=== PATIENT | female | born 1995 | race Caucasian/White ===

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

== ENCOUNTER 2017-09-16 14:02 | Emergency (ER) | payer OTHER ==
[~2017-09-16] VITALS: Ht 152.4 cm; Wt 79.4 kg
[2017-09-16 14:11] VITALS: BP 109/69
--- NOTE | 2017-09-16 14:33 | NUR ---
PATIENT IS A 22 YO FEMALE BIB SELF FOR GENERALIZED RASH FOR 1 DAY. AWAKE AND ALERT NO ACUTE DISTRESS TO BED 10.
[2017-09-16 15:14] VITALS: BP 109/69
--- NOTE | 2017-09-16 15:14 | NUR ---
Patient discharged with v/s stable. Written and verbal after care instructions given and explained. Patient alert, oriented and verbalized understanding of instructions. Ambulatory with steady gait. All questions addressed prior to discharge. ID band removed. Patient advised to follow up with PMD. Rx of CLARITIN given. Patient educated on indication of medication including possible reaction and side effects. Opportunity to ask questions provided and answered.
== END 2017-09-16 15:14 | disposition home or self-care (01) ==
LOC: MED 14:02
DX: T78.49XA Other allergy, initial encounter (principal); L29.9 Pruritus, unspecified; Z79.899 Other long term (current) drug therapy; X58.XXXA Exposure to other specified factors, initial encounter
CPT/HCPCS: 99282

== ENCOUNTER 2017-09-18 09:24 | Emergency (ER) | payer OTHER ==
[~2017-09-18] VITALS: Ht 154.9 cm; Wt 78.9 kg
[2017-09-18 09:33] VITALS: BP 118/75
--- NOTE | 2017-09-18 09:55 | NUR ---
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 Pt is aox4 to person, situation, time, and place. RR are even and unlabored. No swelling noted to lips, tongue, or face. Clear speech with full setences. Patient changed into gown. Awaiting er md carpio. All needs met at this. Will continue to monitor.
[2017-09-18] MEDS ORDERED: diphenhydrAMINE 50 MG/ML VIAL IM ONE (10:05)
[2017-09-18] MEDS ORDERED: DEXAMETHASONE 10 MG/ML VIAL IM ONE (10:05)
--- NOTE | 2017-09-18 10:15 | NUR ---
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 Pt is aox4 to person, situation, time, and place. RR are even and unlabored. No swelling noted to lips, tongue, or face. Clear speech with full setences. Patient changed into gown. Awaiting er md carpio. All needs met at this. Will continue to monitor.
[2017-09-18 10:50] VITALS: BP 116/71
== END 2017-09-18 10:50 | disposition home or self-care (01) ==
LOC: MED 09:24
DX: T63.421A Toxic effect of venom of ants, accidental (unintentional), initial encounter (principal); R21 Rash and other nonspecific skin eruption; Z79.899 Other long term (current) drug therapy; Y92.89 Other specified places as the place of occurrence of the external cause
CPT/HCPCS: 96372; 99284; J1100; J1200

== ENCOUNTER 2018-02-05 07:16 | Outpatient (CLI) | payer OTHER ==
[2018-02-05 07:49] LABS: BASOPHILS % (AUTO) 0.4 % (0.0-2.0); EOSINOPHILS # (AUTO) 0.5 K/uL (0-0.4); EOSINOPHILS % (AUTO) 5.5 % (0.0-4.0); HEMATOCRIT 43.1 % (36-48); HEMOGLOBIN 14.1 g/dL (12.0-16.0); LYMPHOCYTES # (AUTO) 2.3 K/uL (2.5-16.5); LYMPHOCYTES % (AUTO) 25.9 % (20.5-51.1); MEAN CORPUSCULAR HEMOGLOBIN 29 pg (27-31); MEAN CORPUSCULAR HGB CONC 33 g/dL (33-37); MEAN CORPUSCULAR VOLUME 88.4 fL (80-94); MONOCYTES # (AUTO) 0.5 K/uL (0.8-1.0); MONOCYTES % (AUTO) 5.9 % (1.7-9.3); NEUTROPHILS # (AUTO) 5.5 K/uL (1.8-7.7); NEUTROPHILS % (AUTO) 62.3 % (42.2-75.2); PLATELET COUNT (AUTO) 299 K/uL (140-450); RED BLOOD CELL COUNT(AUTO) 4.88 MIL/uL (4.20-5.40); RED CELL DISTRIBUTION WIDTH 13.2 % (11.6-13.7); WHITE BLOOD COUNT (AUTO) 8.8 K/uL (4.5-11.0)
[2018-02-05 08:16] LABS: ALBUMIN 3.4 g/dL (3.4-5.0); ANION GAP 12.5 (8-16); CARBON DIOXIDE 26.6 mmol/L (21-32); CHOL/HDL RATIO 3.1 (1-4.5); CREATININE 0.8 mg/dL (0.6-1.3); FREE T4 (FREE THYROXINE) 1.03 ng/dL (0.76-1.46); MAGNESIUM 1.8 mg/dL (1.8-2.4); POTASSIUM 4.1 mmol/L (3.5-5.1); THYROID STIMULATING HORMONE 1.98 uIU/mL (0.34-3.74); TOTAL BILIRUBIN 0.1 mg/dL (0.0-1.0)
[2018-02-05 10:29] LABS: APPEARANCE,URINE HAZY (CLEAR); BILIRUBIN,URINE NEGATIVE (NEGATIVE); BLOOD, URINE NEGATIVE (NEGATIVE); COLOR,URINE YELLOW (YELLOW); LEUKOCYTE ESTERASE ,URINE NEGATIVE (NEGATIVE); NITRITE, URINE NEGATIVE (NEGATIVE); UGLUCOSE NEGATIVE (NEGATIVE)
[2018-02-05 10:32] LABS: RBC,URINE NONE SEEN /HPF (0-5); WBC,URINE 0-5 (RARE) /HPF (0-5)
== END 2018-02-05 20:28 | disposition home or self-care (01) ==
LOC: MLB 07:16
PROVIDERS: ATTEND Family Medicine
DX: Z00.01 Encounter for general adult medical examination with abnormal findings (principal); N63.20 Unspecified lump in the left breast, unspecified quadrant
CPT/HCPCS: 36415; 76641; 80053; 80061; 81001; 83036; 83735; 84439; 84443; 85025; 87086; Q0092

== ENCOUNTER 2018-04-10 14:18 | Emergency (ER) | payer OTHER ==
[~2018-04-10] VITALS: Ht 154.9 cm; Wt 80.4 kg
[2018-04-10 14:22] VITALS: BP 131/75
--- NOTE | 2018-04-10 14:22 | NUR ---
PATIENT AMBULATED TO ER BED 1.
[2018-04-10] MEDS ORDERED: KETOROLAC 30 MG/ML VIAL IVP ONE (14:55)
[2018-04-10] MEDS ORDERED: ONDANSETRON 4 MG/2 ML VIAL IVP ONE (14:55)
[2018-04-10] MEDS ORDERED: PANTOPRAZOLE 40 MG INJ VIAL IVP ONE (14:55)
[2018-04-10] MEDS ORDERED: NACL 0.9% 1,000 ML IV ONE (14:55)
--- NOTE | 2018-04-10 15:15 | NUR ---
PATIENT ATTEMPTED TO GIVE URINE SAMPLE BUT STATED SHE WAS UNABLE TO PEE.
[2018-04-10 15:39] LABS: BASOPHILS % (AUTO) 0.3 % (0.0-2.0); EOSINOPHILS # (AUTO) 0.1 K/uL (0-0.4); EOSINOPHILS % (AUTO) 0.6 % (0.0-4.0); HEMOGLOBIN 13.2 g/dL (12.0-16.0); LYMPHOCYTES # (AUTO) 1.5 K/uL (2.5-16.5); LYMPHOCYTES % (AUTO) 10.1 % (20.5-51.1); MEAN CORPUSCULAR HEMOGLOBIN 28 pg (27-31); MEAN CORPUSCULAR HGB CONC 32 g/dL (33-37); MEAN CORPUSCULAR VOLUME 87.9 fL (80-94); MONOCYTES # (AUTO) 0.8 K/uL (0.8-1.0); NEUTROPHILS # (AUTO) 12.7 K/uL (1.8-7.7); PLATELET COUNT (AUTO) 277 K/uL (140-450); RED BLOOD CELL COUNT(AUTO) 4.66 MIL/uL (4.20-5.40); RED CELL DISTRIBUTION WIDTH 13.6 % (11.6-13.7); WHITE BLOOD COUNT (AUTO) 15.1 K/uL (4.5-11.0)
[2018-04-10 15:48] LABS: ANION GAP 11.2 (8-16); CARBON DIOXIDE 26.3 mmol/L (21-32); CREATININE 0.8 mg/dL (0.6-1.3); POTASSIUM 3.5 mmol/L (3.5-5.1)
[2018-04-10 15:54] LABS: ALBUMIN 3.7 g/dL (3.4-5.0); TOTAL BILIRUBIN 0.4 mg/dL (0.0-1.0)
[2018-04-10 16:58] VITALS: BP 131/75
--- NOTE | 2018-04-10 16:59 | NUR ---
Patient discharged with v/s stable. Written and verbal after care instructions given and explained. Patient alert, oriented and verbalized understanding of instructions. Ambulatory with steady gait. All questions addressed prior to discharge. ID band removed. Patient advised to follow up with PMD. Rx of colace, miralax, zofran given. Patient educated on indication of medication including possible reaction and side effects. Opportunity to ask questions provided and answered.
== END 2018-04-10 16:59 | disposition home or self-care (01) ==
LOC: MED 14:18
DX: K29.70 Gastritis, unspecified, without bleeding (principal); K59.00 Constipation, unspecified; Z79.2 Long term (current) use of antibiotics; Z79.899 Other long term (current) drug therapy
CPT/HCPCS: 36415; 80053; 81025; 83690; 85025; 96361; 96374; 96375; 99283; C9113; J1885; J2405; J7030

== ENCOUNTER 2018-04-11 12:15 | Inpatient (IN) | payer OTHER ==
[~2018-04-11] VITALS: Ht 152.4 cm; Wt 72.6 kg
[2018-04-11 12:21] VITALS: BP 107/69
--- NOTE | 2018-04-11 12:29 | NUR ---
URINE CUP HANDED TO PT FOR SAMPLE
--- NOTE | 2018-04-11 12:30 | NUR ---
22/F BIB SELF C/O N/V/D X YESTERDAY, RLQ ABD PAIN THIS AM. DENIES FEVER OR TRAUMA. SEEN IN OUR ER YESTERDAY FOR CONSTIPATION. RLQ ABD: SOFT, REBOUND TENDERNESS. PATIENT STATES PAIN OF 9/10 AT THIS TIME. PATIENT POSITIONED FOR COMFORT; HOB ELEVATED; BEDRAILS UP X2; BED DOWN. ER MD MADE AWARE OF PT STATUS.
--- NOTE | 2018-04-11 12:43 | NUR ---
Patient being evaluated by DR ANDRADE at bedside.
[2018-04-11] MEDS ORDERED: NACL 0.9% 2,000 ML IV SCH (12:48)
[2018-04-11] MEDS ORDERED: MORPHINE SULFATE 2 MG/ML SYR IVP ONE (12:50)
[2018-04-11] MEDS ORDERED: KETOROLAC 30 MG/ML VIAL IVP ONE (12:50)
[2018-04-11] MEDS ORDERED: PIPERACILLIN/TAZOBACTAM 3.375 GM in DEXT 5% MINI-BAG PLUS 50 ML IV ONE (12:50)
[2018-04-11] MEDS: NACL 0.9% 1,000 ML IV ONE ×2 (13:10→14:27)
[2018-04-11 13:15] LABS: BASOPHILS # (AUTO) 0.1 K/uL (0.00-0.22); BASOPHILS % (AUTO) 0.3 % (0.0-2.0); EOSINOPHILS # (AUTO) 0.1 K/uL (0-0.4); EOSINOPHILS % (AUTO) 0.4 % (0.0-4.0); HEMATOCRIT 40.7 % (36-48); HEMOGLOBIN 13.2 g/dL (12.0-16.0); LYMPHOCYTES # (AUTO) 1.8 K/uL (2.5-16.5); LYMPHOCYTES % (AUTO) 11.3 % (20.5-51.1); MEAN CORPUSCULAR HEMOGLOBIN 28 pg (27-31); MEAN CORPUSCULAR HGB CONC 32 g/dL (33-37); MEAN CORPUSCULAR VOLUME 86.5 fL (80-94); MONOCYTES # (AUTO) 1.5 K/uL (0.8-1.0); MONOCYTES % (AUTO) 9.1 % (1.7-9.3); NEUTROPHILS # (AUTO) 12.8 K/uL (1.8-7.7); NEUTROPHILS % (AUTO) 78.9 % (42.2-75.2); PLATELET COUNT (AUTO) 273 K/uL (140-450); RED CELL DISTRIBUTION WIDTH 13.5 % (11.6-13.7); WHITE BLOOD COUNT (AUTO) 16.2 K/uL (4.5-11.0)
[2018-04-11] MEDS ORDERED: PIPERACILLIN/TAZOBACTAM 3.375 GM VIAL IV ONE (13:17)
[2018-04-11 13:23] LABS: ANION GAP 15.5 (8-16); CREATININE 0.8 mg/dL (0.6-1.3); POTASSIUM 3.5 mmol/L (3.5-5.1)
[2018-04-11 13:28] LABS: ALBUMIN 3.5 g/dL (3.4-5.0); TOTAL BILIRUBIN 0.7 mg/dL (0.0-1.0)
--- NOTE | 2018-04-11 13:56 | NUR ---
PT TAKEN TO CT VIA WHEELCHAIR
[2018-04-11 15:00] LABS: APPEARANCE,URINE SLIGHTLY CLOUDY (CLEAR); BILIRUBIN,URINE NEGATIVE (NEGATIVE); BLOOD, URINE 3+ (NEGATIVE); COLOR,URINE YELLOW (YELLOW); LEUKOCYTE ESTERASE ,URINE TRACE (NEGATIVE); NITRITE, URINE NEGATIVE (NEGATIVE); UGLUCOSE NEGATIVE (NEGATIVE)
[2018-04-11 15:08] LABS: RBC,URINE 11-20 (MOD) /HPF (0-5)
[2018-04-11] MEDS ORDERED: MORPHINE SULFATE 2 MG/ML SYR IVP PRN (15:55)
[2018-04-11] MEDS ORDERED: HYDROcodone/APAP 5/325 MG 1 TAB TAB PO PRN (15:55)
[2018-04-11] MEDS ORDERED: DOCUSATE SODIUM 100 MG GELCAP PO PRN (15:55)
[2018-04-11] MEDS ORDERED: ACETAMINOPHEN 325 MG TAB PO PRN (15:55)
[2018-04-11] MEDS ORDERED: ONDANSETRON 4 MG/2 ML VIAL IM/IVP PRN (15:55)
--- NOTE | 2018-04-11 16:23 | NUR ---
XRAY AT BEDSIDE
[2018-04-11 16:30] LABS: CHOL/HDL RATIO 2.4 (1-4.5); MAGNESIUM 1.8 mg/dL (1.8-2.4); PHOSPHORUS 2.9 mg/dL (2.5-4.9); THYROID STIMULATING HORMONE 2.29 uIU/mL (0.34-3.74)
[2018-04-11 16:32] LABS: PROTHROMBIN TIME 10.6 secs (10.8-13.4)
--- NOTE | 2018-04-11 16:33 | NUR ---
PT TAKEN TO MED FLOOR BY RN JOSH AND RN STUDENT
--- NOTE | 2018-04-11 16:39 | NUR ---
RECEIVED REPORT FROM ED RN. PT IN STABLE CONDITION. AOX4. NO C/O PAIN OR DISCOMFORT. AMBULATORY WITHOUT ASSIST. SKIN INTACT. BOWEL SOUNDS PRESENT IN ALL QUADRANTS. FLATUS PRESENT. WILL COLLECT STOOL SAMPLE IF PT CONTINUES TO HAVE DIARRHEA PER PROTOCOL. PT IS ON MENSTRUAL CYCLE (STARTED 04/10/18). IV SITE PATENT AND ASYMPTOMATIC, INFUSING IVF PER MD ORDERS. ALL SAFETY PRECAUTIONS IN PLACE, WILL CONTINUE TO MONITOR.
--- NOTE | 2018-04-11 16:39 | NUR ---
Patient will be admitted to care of DR CASAS. Admited to MS. Will go to room 105B. Belongings list completed. Report to GABRIELA PATTERSON.
[2018-04-11 16:45] VITALS: BP 99/63
[2018-04-11] MEDS: NACL 0.9% 1,000 ML IV SCH (16:52)
[2018-04-11] MEDS ORDERED: BISACODYL 5 MG TABEC PO PRN (17:50)
--- NOTE | 2018-04-11 18:40 | NUR ---
ADMINISTERED SOAP SUP ENEMA. PT TOLERATED WELL. PT EDUCATION PROVIDED.
--- NOTE | 2018-04-11 19:31 | NUR ---
ENDORSED POC TO FAMILY PRACTICE PHYSICIAN RN. PT IN STABLE CONDITION.
--- NOTE | 2018-04-11 19:32 | NUR ---
RECEIVED REPORT AM NURSE. PT IN STABLE CONDITION. AOX4. NO C/O PAIN OR DISCOMFORT. AMBULATORY WITHOUT ASSIST. SKIN INTACT. BOWEL SOUNDS PRESENT IN ALL QUADRANTS. FLATUS PRESENT. WILL COLLECT STOOL SAMPLE IF PT CONTINUES TO HAVE DIARRHEA PER PROTOCOL. IV SITE PATENT AND ASYMPTOMATIC, INFUSING IVF PER MD ORDERS. ALL SAFETY PRECAUTIONS IN PLACE, WILL CONTINUE TO MONITOR.
[2018-04-11 20:00] VITALS: BP 100/65
[2018-04-11] MEDS: POLYETHYLENE GLYCOL 17 GM/PKT PO SCH (20:44)
[2018-04-11] MEDS: PIPER/TAZO 3.375GM/D5W PREMIX 50 ML IV SCH (20:44)
[2018-04-11] MEDS ORDERED: PIPERACILLIN/TAZOBACTAM 3.375 GM in DEXTROSE 5% 50 ML IV SCH (21:00)
--- NOTE | 2018-04-11 22:00 | NUR ---
MARIBEL NOTED STILL LOOSE BUT WITH SMALL FORMED STOOLS. WILL INFORM
[2018-04-12] VITALS: BP 100/68
[2018-04-12] MEDS: NACL 0.9% 1,000 ML IV SCH ×3 (01:54→16:59)
[2018-04-12 04:00] VITALS: BP 102/68
--- NOTE | 2018-04-12 04:50 | NUR ---
PT HAD TOTAL OF 4X BM STILL LOOSE BUT W/ SMALL FORMED STOOLS.
[2018-04-12] MEDS: PIPER/TAZO 3.375GM/D5W PREMIX 50 ML IV SCH ×3 (05:01→20:26)
--- NOTE | 2018-04-12 06:19 | NUR ---
PATIENT HAS BEEN SCREENED AND CATEGORIZED MODERATE NUTRITION RISK. PATIENT WILL BE SEEN WITHIN 3-5 DAYS OF ADMISSION. 04/14/18-04/16/18 KENDELL JUÁREZ MS, RDN
[2018-04-12 07:15] LABS: ANION GAP 12.2 (8-16); CARBON DIOXIDE 23.6 mmol/L (21-32); CREATININE 0.7 mg/dL (0.6-1.3); POTASSIUM 3.8 mmol/L (3.5-5.1)
--- NOTE | 2018-04-12 07:18 | NUR ---
ENDORSED PT TO AM SHIFT FOR CONTINUITY OF CARE. PT IN STABLE CONDITION
--- NOTE | 2018-04-12 07:23 | NUR ---
RECEIVED REPORT FROM ORACLE TECHNICAL ARCHITECT RN. PT IN STABLE CONDITION. AOX4. VITALS STABLE. MILD ABD DISCOMFORT, PT STATES TOLERABLE. BOWEL SOUNDS PRESENT IN ALL QUADRANTS. FLATUS PRESENT. AMBULATORY WITHOUT ASSIST. SKIN INTACT. PT IS ON MENSTRUAL CYCLE (STARTED 04/10/18). IV SITE PATENT AND ASYMPTOMATIC, INFUSING IVF PER MD ORDERS. ALL SAFETY PRECAUTIONS IN PLACE, WILL CONTINUE TO MONITOR.
[2018-04-12 07:27] LABS: MAGNESIUM 1.9 mg/dL (1.8-2.4); PHOSPHORUS 2.8 mg/dL (2.5-4.9)
[2018-04-12 07:36] LABS: BASOPHILS % (AUTO) 0.3 % (0.0-2.0); EOSINOPHILS # (AUTO) 0.2 K/uL (0-0.4); EOSINOPHILS % (AUTO) 2.1 % (0.0-4.0); HEMATOCRIT 37.7 % (36-48); HEMOGLOBIN 12.1 g/dL (12.0-16.0); LYMPHOCYTES # (AUTO) 2.2 K/uL (2.5-16.5); LYMPHOCYTES % (AUTO) 21.8 % (20.5-51.1); MEAN CORPUSCULAR HEMOGLOBIN 28 pg (27-31); MEAN CORPUSCULAR HGB CONC 32 g/dL (33-37); MEAN CORPUSCULAR VOLUME 88.4 fL (80-94); MONOCYTES # (AUTO) 0.8 K/uL (0.8-1.0); MONOCYTES % (AUTO) 8.4 % (1.7-9.3); NEUTROPHILS # (AUTO) 6.7 K/uL (1.8-7.7); NEUTROPHILS % (AUTO) 67.4 % (42.2-75.2); PLATELET COUNT (AUTO) 234 K/uL (140-450); RED BLOOD CELL COUNT(AUTO) 4.26 MIL/uL (4.20-5.40); RED CELL DISTRIBUTION WIDTH 13.5 % (11.6-13.7); WHITE BLOOD COUNT (AUTO) 9.9 K/uL (4.5-11.0)
[2018-04-12 08:00] VITALS: BP 100/42
[2018-04-12 08:17] LABS: T4 (THYROXINE) 9.5 ug/dL (4.5-12.0)
[2018-04-12] MEDS: POLYETHYLENE GLYCOL 17 GM/PKT PO SCH ×2 (08:39→20:26)
--- NOTE | 2018-04-12 10:39 | NUR ---
DR. GUERRERO HAS SEEN PATIENT AND EXPLAINED POC & ANSWERED ALL PT QUESTIONS. PT VERBALIZED COMPLETE UNDERSTANDING.
[2018-04-12] MEDS ORDERED: BISACODYL 5 MG TABEC PO SCH (11:00)
[2018-04-12] MEDS ORDERED: MAGNESIUM CITRATE 300 ML BTL PO SCH (11:00)
[2018-04-12 16:00] VITALS: BP 100/65
--- NOTE | 2018-04-12 16:03 | NUR ---
VERIFIED WITH XRAY DEPARTMENT- NO CONSENT NEEDED FOR BARIUM ENEMA. PT NEEDS TO BE NPO AFTER MIDNIGHT, ORDERS PRESENT.
--- NOTE | 2018-04-12 18:35 | NUR ---
PATIENT REPORTS 7 LOOSE/LIQUID BM TODAY.
--- NOTE | 2018-04-12 19:35 | NUR ---
ENDORSED POC TO PROTECTION SPECIALIST RN. PT IN STABLE CONDITION.
--- NOTE | 2018-04-12 19:36 | NUR ---
RECEIVED REPORT FROM DAY SHIFT RN. PT IS A&OX4. RESPIRATIONS ARE EQUAL AND UNLABORED. PT DENIES ANY ABDOMEN PAIN AT THIS TIME. HAS HAD LOOSE STOOLS THROUGH OUT THE DAY. BOWEL SOUNDS ACTIVE ON ALL QUADRANTS. SKIN IS INTACT. IV ON LAC 20G INFUSING IVF PER ORDERS. PT TO BE NPO FOR XRAY BARIUM ON 04/13/18 PT AWARE. PT AMBULATORY WITHOUT ASSIST. PLAN OF CARE DISCUSSED WITH PT. CALL LIGHT WITHIN REACH. WILL CONTINUE TO MONITOR.
--- NOTE | 2018-04-12 20:26 | NUR ---
DUE MEDICATIONS WERE GIVEN. PT TOLERATED WELL. ALL NEEDS MET AT THIS TIME. WILL CONTINUE TO MONITOR.
--- NOTE | 2018-04-12 22:00 | NUR ---
PT RESTING COMFORTABLY IN BED. NO S/S OF DISTRESS. CALL LIGHT WITHIN REACH. WILL CONTINUE TO MONITOR.
[2018-04-12 23:12] VITALS: BP 102/61
--- NOTE | 2018-04-13 | NUR ---
VITAL SIGNS ARE WITHIN NORMAL LIMITS. ALL NEEDS MET AT THIS TIME.
--- NOTE | 2018-04-13 02:00 | NUR ---
PT SLEEPING. NO S/S OF DISTRESS. CALL LIGHT WITHIN REACH.
[2018-04-13] MEDS: NACL 0.9% 1,000 ML IV SCH ×2 (04:04→19:10)
[2018-04-13] MEDS: PIPER/TAZO 3.375GM/D5W PREMIX 50 ML IV SCH ×3 (04:04→21:11)
--- NOTE | 2018-04-13 04:04 | NUR ---
ZOSYN NOW INFUSING PER ORDERS. CALL LIGHT WITHIN REACH. WILL CONTINUE TO MONITOR.
[2018-04-13 06:24] LABS: BASOPHILS % (AUTO) 0.5 % (0.0-2.0); EOSINOPHILS # (AUTO) 0.2 K/uL (0-0.4); EOSINOPHILS % (AUTO) 2.3 % (0.0-4.0); HEMATOCRIT 38.2 % (36-48); HEMOGLOBIN 12.3 g/dL (12.0-16.0); LYMPHOCYTES # (AUTO) 1.8 K/uL (2.5-16.5); LYMPHOCYTES % (AUTO) 25.7 % (20.5-51.1); MEAN CORPUSCULAR HEMOGLOBIN 28 pg (27-31); MEAN CORPUSCULAR HGB CONC 32 g/dL (33-37); MEAN CORPUSCULAR VOLUME 88.3 fL (80-94); MONOCYTES # (AUTO) 0.5 K/uL (0.8-1.0); MONOCYTES % (AUTO) 6.9 % (1.7-9.3); NEUTROPHILS # (AUTO) 4.5 K/uL (1.8-7.7); NEUTROPHILS % (AUTO) 64.6 % (42.2-75.2); PLATELET COUNT (AUTO) 237 K/uL (140-450); RED BLOOD CELL COUNT(AUTO) 4.33 MIL/uL (4.20-5.40); RED CELL DISTRIBUTION WIDTH 13.7 % (11.6-13.7)
[2018-04-13 06:51] LABS: CARBON DIOXIDE 22.8 mmol/L (21-32); CREATININE 0.8 mg/dL (0.6-1.3); POTASSIUM 3.8 mmol/L (3.5-5.1)
[2018-04-13 06:56] LABS: PHOSPHORUS 3.3 mg/dL (2.5-4.9)
--- NOTE | 2018-04-13 07:24 | NUR ---
ENDORSED TO DAY SHIFT RN. PT IS IN STABLE CONDITION. CALL LIGHT WITHIN REACH.
--- NOTE | 2018-04-13 07:25 | NUR ---
RECEIVED BEDSIDE REPORT FROM EMT I/85 NURSE. PATIENT AAOX4. PATIENT ON ROOM AIR, NO DISTRESS NOTED. SKIN INTACT. PATIENT AMBULATORY AND CONTINENT. IV ON L AC 20 G INFUSING NS AT 100. IV CLEAN DRY AND INTACT. PATIENT ON MED SURGE AND STANDARD PRECAUTIONS. PATIENT HAS NO COMPLAINTS AT THIS TIME. BED IN LOW POSITION, CALL LIGHT WITHIN REACH. WILL CONTINUE TO MONITOR.
[2018-04-13 08:00] VITALS: BP 102/57
[2018-04-13] MEDS: POLYETHYLENE GLYCOL 17 GM/PKT PO SCH ×2 (08:42→21:11)
--- NOTE | 2018-04-13 08:47 | NUR ---
ADMINISTERED SCHEDULED MEDS. PATIENT TOLERATED WELL. WILL CONTINUE TO MONITOR.
[2018-04-13] MEDS ORDERED: SODIUM PHOSPHATE 118 ML ENEM RC SCH (10:30)
[2018-04-13] MEDS ORDERED: MAGNESIUM CITRATE 300 ML BTL PO SCH (10:30)
--- NOTE | 2018-04-13 19:15 | NUR ---
RECEIVED REPORT FROM YESENIA RODRIGUEZ FOR CONTINUITY OF CARE. PT A/OX4 ON ROOM AIR. PT IS ABLE TO MAKE NEEDS KNOWN, ABLE TO FOLLOW COMMANDS. PT AMBULATES WITH STEADY GAIT AND SKIN IS INTACT. PT HAS A 20G IV TO LEFT AC, ASYMPTOMATIC AND INTACT. VITAL SIGNS WITHIN NORMAL LIMITS. PT STABLE, DENIES HAVING ANY PAIN, NO SIGNS OF DISTRESS NOTED AT THIS TIME. PT POSITIONED FOR COMFORT. BED IN LOWEST POSITION, BED ALARM ON. WILL CONTINUE TO MONITOR.
[2018-04-13 20:00] VITALS: BP 107/69
--- NOTE | 2018-04-13 21:12 | NUR ---
ADMINISTERED SCHEDULED MEDICATIONS, PT TOLERATED WELL. WILL CONTINUE TO MONITOR.
[2018-04-14] VITALS: BP 107/76
--- NOTE | 2018-04-14 | NUR ---
VITAL SIGNS WITHIN NORMAL LIMITS. PT STABLE, DENIES HAVING ANY PAIN, NO SIGNS OF DISTRESS NOTED AT THIS TIME. PT POSITIONED FOR COMFORT. BED IN LOWEST POSITION, BED ALARM ON. WILL CONTINUE TO MONITOR.
--- NOTE | 2018-04-14 01:45 | NUR ---
NO SIGNS OF DISTRESS NOTED AT THIS TIME. PT POSITIONED FOR COMFORT. BED IN LOWEST POSITION, BED ALARM ON. WILL CONTINUE TO MONITOR.
--- NOTE | 2018-04-14 03:30 | NUR ---
SPOKE WITH DR HOLGUIN AND DR SEPULEVDA ABOUT PT STILL HAVING SOME FORMED STOOL. THEY WILL ORDER A SUPPOSITORY.
[2018-04-14] MEDS ORDERED: BISACODYL 10 MG SUPP RC SCH (03:45)
--- NOTE | 2018-04-14 03:51 | NUR ---
ADMINISTERED SUPPOSITORY ORDERED, PT TOLERATED WELL.
[2018-04-14] MEDS: NACL 0.9% 1,000 ML IV SCH (03:55)
[2018-04-14] MEDS: PIPER/TAZO 3.375GM/D5W PREMIX 50 ML IV SCH ×2 (04:39→13:46)
--- NOTE | 2018-04-14 05:26 | NUR ---
PT STABLE, DENIES HAVING ANY PAIN, NO SIGNS OF DISTRESS NOTED AT THIS TIME. PT POSITIONED FOR COMFORT. BED IN LOWEST POSITION, BED ALARM ON. WILL CONTINUE TO MONITOR.
[2018-04-14 06:08] LABS: BASOPHILS % (AUTO) 0.3 % (0.0-2.0); EOSINOPHILS # (AUTO) 0.2 K/uL (0-0.4); EOSINOPHILS % (AUTO) 2.4 % (0.0-4.0); HEMATOCRIT 38.7 % (36-48); HEMOGLOBIN 12.6 g/dL (12.0-16.0); MEAN CORPUSCULAR HEMOGLOBIN 29 pg (27-31); MEAN CORPUSCULAR HGB CONC 32 g/dL (33-37); MEAN CORPUSCULAR VOLUME 88.2 fL (80-94); MONOCYTES # (AUTO) 0.4 K/uL (0.8-1.0); MONOCYTES % (AUTO) 5.8 % (1.7-9.3); NEUTROPHILS % (AUTO) 65.5 % (42.2-75.2); PLATELET COUNT (AUTO) 261 K/uL (140-450); RED BLOOD CELL COUNT(AUTO) 4.39 MIL/uL (4.20-5.40); RED CELL DISTRIBUTION WIDTH 13.4 % (11.6-13.7); WHITE BLOOD COUNT (AUTO) 7.6 K/uL (4.5-11.0)
[2018-04-14 06:43] LABS: ANION GAP 9.9 (8-16); CARBON DIOXIDE 26.4 mmol/L (21-32); CREATININE 0.8 mg/dL (0.6-1.3); POTASSIUM 4.3 mmol/L (3.5-5.1)
[2018-04-14 06:56] LABS: PHOSPHORUS 3.6 mg/dL (2.5-4.9)
--- NOTE | 2018-04-14 07:15 | NUR ---
ENDORSED PT TO DAY SHIFT YESENIA RODRIGUEZ FOR CONTINUITY OF CARE. PT IN STABLE CONDITION.
--- NOTE | 2018-04-14 07:16 | NUR ---
GOT REPORT FROM TOWER ATTENDANT NURSE. PATIENT AAOX4. PATIENT ON ROOM AIR, NO DISTRESS NOTED. SKIN INTACT. PATIENT AMBULATORY. IV ON L AC 20 G INFUSING NS AT 100. IV CLEAN DRY AND INTACT. PATIENT ON MED SURGE, AND STANDARD PRECAUTIONS IN PLACE. BED IN LOW POSITION, CALL LIGHT WITHIN REACH. WILL CONTINUE TO MONITOR.
[2018-04-14 08:00] VITALS: BP 107/55
[2018-04-14] MEDS: POLYETHYLENE GLYCOL 17 GM/PKT PO SCH (09:00)
--- NOTE | 2018-04-14 10:45 | NUR ---
PATIENT PICKED UP FOR BARIUM ENEMA. DISCONNECTED PATIENT FROM IV TUBING.
--- NOTE | 2018-04-14 12:05 | NUR ---
PATIENT WHEELED BACK TO UNIT AFTER BARIUM ENEMA VIA WHEELCHAIR. PATIENT IN STABLE CONDITION. WILL CONTINUE TO MONITOR.
--- NOTE | 2018-04-14 12:06 | NUR ---
PATIENT BACK FROM RADIOLOGY FOR BARIUM ENEMA. PATIENT IN STABLE CONDITION. WILL CONTINUE TO MONITOR.
--- NOTE | 2018-04-14 13:49 | NUR ---
PATIENT WATCHING TV. NO DISTRESS NOTED, ON ROOM AIR. WILL CONTINUE TO MONITOR.
[2018-04-14] MEDS ORDERED: [UNRECOGNIZED DRUG - CODE] PO (15:53)
[2018-04-14] MEDS ORDERED: PLEC3TAB PO (15:53)
[2018-04-14] MEDS ORDERED: DOCU-299 PO (15:55)
[2018-04-14 16:00] VITALS: BP 101/62
--- NOTE | 2018-04-14 16:30 | NUR ---
GAVE PATIENT DISCHARGE INSTRUCTIONS REGARDING DIAGNOSIS. STATED PRESCRIPTIONS ELECTRONICALLY SENT TO HER PHARMACY. PATIENT AWARE. INSTRUCTED PATIENT TO FOLLOW UP WITH PCP IN 3-5 DAYS TO HAVE A REFERRAL FOR A AIRCREWMAN. PATIENT EDUCATED ON TRULANCE 3 MG DAILY FOR IBS AND CHRONIC CONSTIPATION. EDUCATED PATIENT TO DRINK FLUIDS AND HAVE A HIGH FIBER DIET. PROVIDED PATIENT WITH INSTRUCTIONS INCLUDED IN HER PACKET. PATIENT VERBALIZED UNDERSTANDING. PROVIDED PATIENT WITH 3 COPIES OF EXC[employer] NOTES FOR WORK/SCHOOL. PATIENT WITH ALL PERSONAL BELONGINGS. REMOVED WRIST BAND AND IV. IV TIP INTACT. ANSWERED ALL QUESTIONS AND CONCERNS.
== END 2018-04-14 16:50 | disposition home or self-care (01) | DRG 392 ==
LOC: MED 12:15 → MTU 15:54
PROVIDERS: ADMIT General Practice; ATTEND General Practice
DX: K58.9 Irritable bowel syndrome, unspecified (principal); N39.0 Urinary tract infection, site not specified; K56.41 Fecal impaction; D72.829 Elevated white blood cell count, unspecified; Z83.3 Family history of diabetes mellitus; Z82.49 Family history of ischemic heart disease and other diseases of the circulatory system; E87.8 Other disorders of electrolyte and fluid balance, not elsewhere classified; E66.9 Obesity, unspecified; Z68.31 Body mass index [BMI] 31.0-31.9, adult; R00.0 Tachycardia, unspecified
CPT/HCPCS: 36415; 71045; 74018; 74280; 80048; 80053; 81001; 82150; 83036; 83605; 83690; 83735; 83880; 84100; 84436; 84443; 84479; 84703; 85025; 85610; 85730; 87040; 87081; 87086; 93005; 96361; 96365; 96375; 99285; J1885; J2270; J2543; J7030; J7060; Q0092; Q9967

== ENCOUNTER 2018-09-15 14:04 | Emergency (ER) | payer OTHER ==
[~2018-09-15] VITALS: Ht 154.9 cm; Wt 81.6 kg
[~2018-09-15 14:04] MED LIST changes: +DOCU-299 PO; +PLEC3TAB PO; +[UNRECOGNIZED DRUG - CODE] PO
[2018-09-15 14:09] VITALS: BP 122/74
--- NOTE | 2018-09-15 14:13 | NUR ---
TO BED 3 WITH STEADY GAIT
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
--- NOTE | 2018-09-15 14:22 | NUR ---
Patient being evaluated by physician at bedside.
[2018-09-15] MEDS ORDERED: IBUPROFEN 600 MG TAB PO ONE (14:35)
--- NOTE | 2018-09-15 14:43 | NUR ---
PT TO RADIOLOGY
--- NOTE | 2018-09-15 14:53 | NUR ---
PT IS BACK FROM X-RAY
[2018-09-15 15:55] VITALS: BP 116/72
--- NOTE | 2018-09-15 15:55 | NUR ---
Patient discharged with v/s stable. Written and verbal after care instructions given and explained. Rx of IBUPROFEN given. Patient educated on indication of medication including possible reaction and side effects. All questions addressed prior to discharge. ID band removed. Patient advised to follow up with PMD.
== END 2018-09-15 15:55 | disposition home or self-care (01) ==
LOC: MED 14:04
DX: M54.6 Pain in thoracic spine (principal); R10.9 Unspecified abdominal pain; Z79.899 Other long term (current) drug therapy; W18.39XA Other fall on same level, initial encounter; Y93.72 Activity, wrestling; Y92.89 Other specified places as the place of occurrence of the external cause; Y99.8 Other external cause status
CPT/HCPCS: 71101; 81025; 99283

== ENCOUNTER 2018-10-28 10:37 | Outpatient (CLI) | payer OTHER ==
[2018-10-28 11:08] LABS: BASOPHILS % (AUTO) 0.4 % (0.0-2.0); EOSINOPHILS # (AUTO) 0.4 K/uL (0-0.4); EOSINOPHILS % (AUTO) 5.7 % (0.0-4.0); HEMATOCRIT 40.9 % (36-48); HEMOGLOBIN 13.6 g/dL (12.0-16.0); LYMPHOCYTES # (AUTO) 1.6 K/uL (2.5-16.5); LYMPHOCYTES % (AUTO) 21.8 % (20.5-51.1); MEAN CORPUSCULAR HEMOGLOBIN 29 pg (27-31); MEAN CORPUSCULAR HGB CONC 33 g/dL (33-37); MEAN CORPUSCULAR VOLUME 87.4 fL (80-94); MONOCYTES # (AUTO) 0.2 K/uL (0.8-1.0); MONOCYTES % (AUTO) 3.3 % (1.7-9.3); NEUTROPHILS # (AUTO) 5.1 K/uL (1.8-7.7); NEUTROPHILS % (AUTO) 68.8 % (42.2-75.2); PLATELET COUNT (AUTO) 214 K/uL (140-450); RED BLOOD CELL COUNT(AUTO) 4.69 MIL/uL (4.20-5.40); RED CELL DISTRIBUTION WIDTH 14.9 % (11.6-13.7); WHITE BLOOD COUNT (AUTO) 7.5 K/uL (4.8-10.8)
[2018-10-28 11:31] LABS: ALBUMIN 3.3 g/dL (3.4-5.0); ANION GAP 8.8 (8-16); CARBON DIOXIDE 29.5 mmol/L (21-32); CHOL/HDL RATIO 2.5 (1-4.5); CREATININE 0.7 mg/dL (0.6-1.3); POTASSIUM 4.3 mmol/L (3.5-5.1); TOTAL BILIRUBIN 0.2 mg/dL (0.0-1.0)
[2018-10-28 12:56] LABS: APPEARANCE,URINE CLEAR (CLEAR); BILIRUBIN,URINE NEGATIVE (NEGATIVE); BLOOD, URINE NEGATIVE (NEGATIVE); COLOR,URINE YELLOW (YELLOW); LEUKOCYTE ESTERASE ,URINE TRACE (NEGATIVE); NITRITE, URINE POSITIVE (NEGATIVE); UGLUCOSE NEGATIVE (NEGATIVE)
[2018-10-28 14:08] LABS: RBC,URINE 0-5 /HPF (0-5); WBC,URINE 0-5 /HPF (0-5)
[2018-10-29 10:06] LABS: T4 FREE (DIRECT) 1.26 ng/dL (0.82-1.77); TRIIODOTHYRONINE FREE 4.2 pg/mL (2.0-4.4)
== END 2018-10-28 20:22 | disposition home or self-care (01) ==
LOC: MLB 10:37
PROVIDERS: ATTEND Family Medicine
DX: Z11.3 Encounter for screening for infections with a predominantly sexual mode of transmission (principal)
CPT/HCPCS: 36415; 80053; 81001; 82306; 84439; 84443; 84480; 84481; 85025; 86592; 86702

== ENCOUNTER 2019-02-02 17:21 | Emergency (ER) | payer OTHER ==
[~2019-02-02] VITALS: Ht 154.9 cm; Wt 79.4 kg
[2019-02-02 17:31] VITALS: BP 113/73
--- NOTE | 2019-02-02 17:36 | NUR ---
PT AMB TO BED 1
[2019-02-02] MEDS ORDERED: LIDOCAINE MPF 1% 10 MG/ML VIAL INJ ONE ×2 (17:45→18:40)
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
--- NOTE | 2019-02-02 18:04 | NUR ---
SUTURE TRAY SET UP AT BEDSIDE.
[2019-02-02 19:18] VITALS: BP 113/73
--- NOTE | 2019-02-02 19:18 | NUR ---
APPLIED NON ADHEREING DRESSING TO RIGHT GREAT TOE WITHOUT ANY ISSUES
--- NOTE | 2019-02-02 19:18 | NUR ---
Patient discharged with v/s stable. Written and verbal after care instructions given and explained. Patient alert, oriented and verbalized understanding of instructions. Ambulatory with steady gait. All questions addressed prior to discharge. ID band removed. Patient advised to follow up with PMD. Rx of BACITRACIN AND IBURPROFEN given. Patient educated on indication of medication including possible reaction and side effects. Opportunity to ask questions provided and answered.
== END 2019-02-02 19:18 | disposition home or self-care (01) ==
LOC: MED 17:21
DX: S99.922A Unspecified injury of left foot, initial encounter (principal); Z79.899 Other long term (current) drug therapy; X58.XXXA Exposure to other specified factors, initial encounter; Y93.72 Activity, wrestling; Y92.89 Other specified places as the place of occurrence of the external cause; Y99.8 Other external cause status
CPT/HCPCS: 99282; J2001

== ENCOUNTER 2019-12-23 19:17 | Emergency (ER) | payer OTHER, SELFPAY ==
[~2019-12-23] VITALS: Ht 154.9 cm; Wt 97.6 kg
[2019-12-23 19:48] VITALS: BP 117/44
--- NOTE | 2019-12-23 19:52 | NUR ---
AMBULATED TO CHAIR C WITH STEADY GAIT
--- NOTE | 2019-12-23 19:54 | NUR ---
PT MOVED TO TENT WITH STEADY GAIT
--- NOTE | 2019-12-23 20:10 | NUR ---
24 YO F BIB SELF FOR PCR TESTING TO RETURN TO WORK AT [employer]. PT STATES SHE HAD COLD LIKE SYMPTOMS LAST WEEK AND NEEDS A NEGATIVE RESULT TO RETURN BACK TO WORK. THIS IS PTS FIRST COVID TEST. PT IS NOW ASYMPTOMATIC. MED HX: DENIES NO RX NKA
--- NOTE | 2019-12-23 20:11 | NUR ---
NOVEL TEST COLLECTED AND SENT TO LAB
[2019-12-23 20:13] VITALS: BP 117/44
--- NOTE | 2019-12-23 20:13 | NUR ---
Patient discharged with v/s stable. Written and verbal after care instructions given and explained. Patient verbalized understanding. Ambulatory with steady gait. All questions addressed prior to discharge. Advised to follow up with PMD.
--- NOTE | 2019-12-27 11:28 | NUR ---
Negative covid results received from lab.
== END 2019-12-23 20:13 | disposition home or self-care (01) ==
LOC: MED 19:17
DX: R09.81 Nasal congestion (principal); R51.9 Headache, unspecified; Z20.828 Contact with and (suspected) exposure to other viral communicable diseases; Z79.899 Other long term (current) drug therapy
CPT/HCPCS: 99283; U0003

== ENCOUNTER 2020-08-07 10:22 | Outpatient (CLI) | payer OTHER ==
[~2020-08-07 10:22] MED LIST changes: +LACT-103 PO; -LACT10SO1 PO; -PLEC3TAB PO; +PLEC3TAB2 PO
[2020-08-07 11:02] LABS: BASOPHILS % (AUTO) 0.4 % (0.0-2.0); EOSINOPHILS # (AUTO) 0.6 K/uL (0-0.4); HEMATOCRIT 42.4 % (36-48); HEMOGLOBIN 14.2 g/dL (12.0-16.0); LYMPHOCYTES # (AUTO) 2.3 K/uL (2.5-16.5); LYMPHOCYTES % (AUTO) 23.1 % (20.5-51.1); MEAN CORPUSCULAR HEMOGLOBIN 29 pg (27-31); MEAN CORPUSCULAR HGB CONC 34 g/dL (33-37); MEAN CORPUSCULAR VOLUME 86.2 fL (80-94); MONOCYTES # (AUTO) 0.5 K/uL (0.8-1.0); MONOCYTES % (AUTO) 4.8 % (1.7-9.3); NEUTROPHILS # (AUTO) 6.5 K/uL (1.8-7.7); NEUTROPHILS % (AUTO) 65.7 % (42.2-75.2); PLATELET COUNT (AUTO) 298 K/uL (140-450); RED BLOOD CELL COUNT(AUTO) 4.91 MIL/uL (4.20-5.40); RED CELL DISTRIBUTION WIDTH 13.7 % (11.6-13.7); WHITE BLOOD COUNT (AUTO) 9.9 K/uL (4.8-10.8)
[2020-08-07 11:16] LABS: ALBUMIN 3.8 g/dL (3.4-5.0); ANION GAP 11.7 (8-16); CARBON DIOXIDE 26.3 mmol/L (21-32); CHOL/HDL RATIO 3.6 (1-4.5); CREATININE 0.8 mg/dL (0.6-1.3); TOTAL BILIRUBIN 0.2 mg/dL (0.0-1.0)
== END 2020-08-07 19:31 | disposition home or self-care (01) ==
LOC: MLB 10:22
PROVIDERS: ATTEND Internal Medicine Cardiovascular Disease
DX: Z00.00 Encounter for general adult medical examination without abnormal findings (principal)
CPT/HCPCS: 36415; 80053; 82306; 83036; 85025; 86592; 86702; 87491

== ENCOUNTER 2020-08-22 10:35 | Outpatient (CLI) | payer OTHER ==
[2020-08-24 08:59] LABS: HEPATITIS B SURFACE ANTIBODY NR (NONREACTIVE)
[2020-08-24 09:00] LABS: HEPATITIS C VIRUS ANTIBODY <0.1 s/co (0.0 - 0.9)
== END 2020-08-22 19:42 | disposition home or self-care (01) ==
LOC: MLB 10:35
PROVIDERS: ATTEND Obstetrics & Gynecology
DX: Z11.3 Encounter for screening for infections with a predominantly sexual mode of transmission (principal)
CPT/HCPCS: 36415; 86592; 86694; 86702; 86706; 86803; 87491

== ENCOUNTER 2020-09-15 14:10 | Outpatient (CLI) | payer OTHER | END 2020-09-15 20:27 | disposition home or self-care (01) | LOC: MDS 14:10 | PROVIDERS: ATTEND Obstetrics & Gynecology | DX: Z86.19 Personal history of other infectious and parasitic diseases (principal) | CPT/HCPCS: 36415; 87491 ==

== ENCOUNTER 2021-10-10 08:06 | Outpatient (CLI) | payer OTHER | END 2021-10-10 21:19 | disposition home or self-care (01) | LOC: MLB 08:06 | PROVIDERS: ATTEND Obstetrics & Gynecology | DX: Z11.3 Encounter for screening for infections with a predominantly sexual mode of transmission (principal) | CPT/HCPCS: 86592; 87086; 87491 ==

== ENCOUNTER 2023-03-20 14:15 | Emergency (ER) | payer OTHER ==
[~2023-03-20] VITALS: Ht 154.9 cm; Wt 102.5 kg
[2023-03-20 14:47] VITALS: PULSE 94; RESP 16; TEMP 97.8; O2SAT 97
== END 2023-03-20 19:00 | disposition left against medical advice (07) ==
LOC: MED 14:15
DX: J02.9 Acute pharyngitis, unspecified (principal); Z79.899 Other long term (current) drug therapy
CPT/HCPCS: 99281